=== PATIENT | male | born 1965 | race African-American/Black ===

== ENCOUNTER 2016-07-06 21:46 | Emergency (ER) | payer BC, OTHER ==
[~2016-07-06 21:46] MED LIST: COLACE PO; GABAPENTIN400 MG PO; MIRALAX17 GM PO; NO MEDICATIONS; VOLTAREN75 MG PO
== END 2016-07-06 22:00 | disposition home or self-care (01) ==
LOC: SED 21:46
DX: S83.91XA Sprain of unspecified site of right knee, initial encounter (principal); I10 Essential (primary) hypertension; X50.1XXA Overexertion from prolonged static or awkward postures, initial encounter; Y92.009 Unspecified place in unspecified non-institutional (private) residence as the place of occurrence of the external cause
CPT/HCPCS: 99283

== ENCOUNTER 2016-11-09 19:13 | Emergency (ER) | payer BC ==
[~2016-11-09] VITALS: Ht 182.9 cm; Wt 88.0 kg
--- NOTE | ~2016-11-09 | CR282 ---
[facility]. [facility] A Service of [facility] & [facility] RADIOLOGY TEXT RESULTS PATIENT: ROSALBA REYES LOCATION: SED : 67 UNIT #: [id number] AGE: [address]: Irlanda Hood SEX: M ORDER DR: [id number] [place] [id number] E MR#: [id number] Acc #: [id number] NAME: ROSALBA REYES : 1965 SEX: M STUDY DATE/TIME: 11/09/2016 20:49 UNIT: SED ROOM: STUDY DESCRIPTION: CR Wrist Min 3 View Rt Attending Physician: Irlanda Hood Pa-C Ordering Physician: Physician Non-Staff Primary Care Physician: Serjio Ward M.D. MEDICAL IMAGING REPORT This report is preliminary unless electronic signature is present. EXAM Right wrist 3 views, 11/09/2016 2049 hours CLINICAL HISTORY Patient complains of burning tingling pain and right hand and arm for 6 days. No known injury. COMPARISON None. FINDINGS AP, lateral and oblique views demonstrate normal bone density. There is no fracture, dislocation, spurring or erosion. IMPRESSION Negative right wrist. Dictated by... Latonia Salinas M.D. THIS IS AN ELECTRONICALLY VERIFIED REPORT Latonia Salinas M.D. at 11/10/2016 9:28 AM PHAM/benny TD: 11/10/2016 00:29 JOB #: [id number] MEDICAL IMAGING REPORT Page 1 of 1
[2016-11-09] MEDS ORDERED: GABAPENTIN400 M2 PO (19:33)
== END 2016-11-09 22:01 | disposition home or self-care (01) ==
LOC: SED 19:13
DX: R20.2 Paresthesia of skin (principal); Z79.899 Other long term (current) drug therapy; Z88.8 Allergy status to other drugs, medicaments and biological substances
CPT/HCPCS: 73110; 99284

== ENCOUNTER 2016-11-20 22:46 | Emergency (ER) | payer BC ==
[~2016-11-20] VITALS: Ht 182.9 cm; Wt 86.2 kg
--- NOTE | ~2016-11-20 | CT71 ---
[facility] A Service of [facility] RADIOLOGY TEXT RESULTS PATIENT: ROSALBA REYES LOCATION: DANIELA : [birth year] UNIT #: [id number] AGE: [address]: Sina Cabral MD SEX: M ORDER DR: [id number] [facility] [address] [place], [place] [address] [id number] E MR#: [id number] Acc #: [id number] NAME: ROSALBA REYES : 1965 SEX: M STUDY DATE/TIME: 11/21/2016 02:59 UNIT: DANIELA ROOM: STUDY DESCRIPTION: CT Head Wo Contrast Attending Physician: Sina Cabral M.D. Ordering Physician: Sina Cabral M.D. Primary Care Physician: Serjio Ward M.D. MEDICAL IMAGING REPORT This report is preliminary unless electronic signature is present EXAM Head CT 11/21 at 02:59 INDICATION Headache, blurred vision since 9 o'clock last night. COMPARISON None. FINDINGS This CT examination was performed with one or more of the following radiation dose reduction techniques: automatic exposure control, adjustment of mA and/or kV according to patient size, and iterative reconstruction. Axial noncontrast images were obtained from the skull base to the vertex. Ventricular size and configuration are normal. There is no evidence of acute infarct or hemorrhage. There are no extra-axial fluid collections. No mass lesion or mass effect is seen. There are no skull fractures. IMPRESSION Normal noncontrast head CT. Dictated by... Sina Penaloza Jr., M.D. THIS IS AN ELECTRONICALLY VERIFIED REPORT Sina Penaloza Jr., M.D. at 11/22/2016 6:03 AM JESSICA/carlyn TD: 11/21/2016 10:14 JOB #: [id number] [facility] A Service of [facility] RADIOLOGY TEXT RESULTS PATIENT: ROSALBA REYES LOCATION: DANIELA : 67 UNIT #: [id number] AGE: [address]: Sina Cabral MD SEX: M ORDER DR: MEDICAL IMAGING REPORT Page 1 of 1 COPY
[~2016-11-20 22:46] MED LIST changes: +GABAPENTIN400 M2 PO
[2016-11-21 01:58] LABS: POC - CKMB 1.2 ng/mL (0.0-7.9); POC - TROPONIN <0.05 ng/mL (<=0.05)
[2016-11-21 02:25] LABS: BASOPHIL% 0.8 % (0-2.5); EOSINOPHIL# 0.1 X10e3 (0-0.7); EOSINOPHIL% 1.3 % (0.0-7.0); HEMATOCRIT 42.3 % (38.0-50.0); HEMOGLOBIN 14.4 gm/dL (13.0-16.0); LYMPHOCYTE% 43.7 % (17.0-45.0); MEAN CELL VOLUME 82.2 FL (83-96); MEAN CORPUSCULAR HEMOGLOBIN 28.1 PG (28-34); MEAN CORPUSCULAR HGB CONC 34.2 g/dL (30-36); MEAN PLATELET VOLUME 8.1 FL (6.5-11.5); MONOCYTE# 0.4 X10e3 (0-1.0); MONOCYTE% 7.6 % (3.0-12.0); NEUTROPHIL# 2.2 X10e3 (1.5-7.1); NEUTROPHIL% 46.6 % (40-75); PLATELET COUNT 222 X10e3 (140-420); RED BLOOD COUNT 5.14 X10e (3.90-5.60); RED CELL DISTRIBUTION WIDTH 13.2 % (11.0-15.5); WHITE BLOOD COUNT 4.6 X10e3 (4.0-10.5)
[2016-11-21 02:27] LABS: DIFF IND NO
[2016-11-21 02:32] LABS: CALCIUM SERUM 8.8 mg/dL (8.4-10.2); GLOM FILT RATE Estimated 101.3 mL/min (>60); POTASSIUM 3.4 mmol/L (3.5-5.1)
== END 2016-11-21 04:29 | disposition home or self-care (01) ==
LOC: CED 22:46
PROVIDERS: Emergency Medicine
DX: R51 Headache (principal); I16.0 Hypertensive urgency; Z88.8 Allergy status to other drugs, medicaments and biological substances; Z79.899 Other long term (current) drug therapy
CPT/HCPCS: 36415; 70450; 80048; 82553; 84484; 85025; 99284